=== PATIENT | male | born 1950 | race Caucasian/White ===

== ENCOUNTER 2017-08-23 12:37 | Inpatient (IN) ==
--- NOTE | 2017-08-23 11:38 | Anesthesia Evaluation PreOp ---
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3 L Hct 37.0 L Plt Count 287 Sodium 138 Potassium 5.2 H BUN 40 H Creatinine 1.35 H - Imaging EKG: report reviewed (08/22/2017 SINUS RHYTHM) Anesthesia Exam O2 Sat Height 1.7 m Height 1.7 m Weight 91.626 kg Weight 91.626 kg O2 Sat by Pulse Oximetry 95 Vital Signs Temp Pulse Resp BP Pulse Ox 97.9 F 85 18 121/80 95 08/23/17 13:05 08/23/17 13:05 08/23/17 13:05 08/23/17 13:05 08/23/17 13:05 Blood Glucose* 94 Height: 5'7'' Weight: 202 lbs NPO (# of Hours): 8 Pain Scale: 0 Pain Scale Used: Numeric (1 - 10) - HEENT Pupil (Motor): EOMI Mallampati: II Teeth: Normal Oral Opening: Greater than 3 - 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
--- NOTE | 2017-08-23 13:03 | History & Physical Report ---
Date of Encounter: 08/23/17 Time of Encounter: 13:03 24 Hour HP Update - Instructions Instructions: If the History and Physical is less than 30 days old and was completed prior to A.M. admission and or procedure and has NOT been updated on calendar day of procedure please complete this update prior to performing procedure. - Update Patient reports changes in Medical Condition: No Changes in examination, assessment, or condition: No Changes in Medication: No Preop tests/diagnostics Reviewed: Yes Surgery Remains Indicated: Yes Consent for Planned Operative Procedure(s) Verified: Yes - Pre-Operative Checklist Preoperative Checklist Indicated: No Prophylactic Antibiotic Ordered: Yes Is VTE Prophylaxis Indicated?: Yes
--- NOTE | 2017-08-23 13:05 | Discharge Summary ---
Orders not resulted at time of discharge: Pending orders 08/23/17 09:09 Hemoglobin and Hematocrit [HEME] Routine Date of Encounter: 08/24/17 Time of Encounter: 06:48 - Discharge Diagnosis (1) Left rotator cuff tear arthropathy Priority: Primary Status: Chronic (2) Status post reverse total replacement of left shoulder Priority: Primary Status: Acute (3) Obesity (BMI 30.0-34.9) Priority: Secondary Status: Chronic (4) Hypertension Priority: Secondary Status: Chronic Qualifiers: Hypertension type: unspecified Qualified Code(s): I10 - Essential (primary ) hypertension (5) Hyperlipidemia Priority: Secondary Status: Chronic Qualifiers: Hyperlipidemia type: unspecified Qualified Code(s): E78.5 - Hyperlipidemia , unspecified (6) Type 2 diabetes mellitus Priority: Secondary Status: Chronic Qualifiers: Diabetes mellitus joint terminal attack controller insulin use: unspecified fdc insulin use status Diabetes mellitus complication status: with unspecified complications Qualified Code(s): E11.8 - Type 2 diabetes mellitus with unspecified complications (7) Tobacco consumption Priority: Secondary Status: Chronic - Hospital Course Hospital course: Mr. Brower is a 66 year old male Status post left total shoulder replacement discharged home same day - Time Spent with Patient Total time spent providing and/or coordinating discharge services: - Discharge Medications Home Medications: Albuterol Sulfate [Ventolin Hfa] 2 puff IH Q4H PRN 08/23/17 [History] Allopurinol [Zyloprim 300 MG] 300 mg PO DAILY 08/23/17 [History] Aspirin [Lo-Dose Aspirin EC] 81 mg PO DAILY 08/23/17 [History] Cinnamon Bark [Cinnamon] 500 mg PO DAILY 08/23/17 [History] Diclofenac Sodium [Voltaren] 75 mg PO BID 08/23/17 [History] Famotidine [Pepcid] 10 mg PO BID 08/23/17 [History] Lisinopril [Zestril] 40 mg PO DAILY 08/23/17 [History] Metformin HCl [Glucophage] 1,000 mg PO BID 08/23/17 [History] Niacin [Plain Niacin] 500 mg PO BID 08/23/17 [History] [employer]-3/Dha/Epa/Fish Oil [Fish Oil 1,000 mg Softgel] 1,000 mg PO DAILY 08/23/17 [History] Simvastatin [Zocor] 80 mg PO DAILY 08/23/17 [History] Allergies/Adverse Reactions: 3 Allergy/AdvReac Type Severity Reaction Status Date / Time No Known Allergies Allergy Verified 03/30/17 10:46 Primary care physician: Mar Clark, - Patient Status Disposition: Home, Self-Care - Discharge Instructions Follow Up With: Brooklyn Joshi PAC [Physician Rn Anesthesiology] - 08/30/17 11:15 Mar Bartholomew MD [Primary Care Provider] - Additional Instructions: Discharge Instructions: Total Shoulder Please call [facility] ([phone]), your Primary Care Physician, or report to the Emergency Room if you have any of the following symptoms: Nausea, vomiting, fever greater that 101.5, swelling, chest pain, shortness of breath, increased pain/redness/drainage/odor for your incision site, numbness/ tingling, or any other concerning symptoms. ACTIVITY: Always keep your arm in the sling. Do not raise your arm away from your body. Do not use your arm to help with getting in or out of bed. No weight bearing permitted. Only perform those exercises given to you by your therapist. MEDICATIONS: Upon discharge resume your home medications. Take all the medications as prescribed. Take a stool softener if taking narcotic pain medications. Stool softeners are only effective if you drink enough fluids. Drink 6-8 glass of water or fluids a day, unless this is not allowed for another health problem. Despite using stool softeners, if you haven't had a bowel movement in 3 days, please switch to a gentle laxative. Gentle laxatives are sold over the counter. You should have a bowel movement within 24 hours, if not call the office. You will be discharged from the hospital with a prescription for pain medication. You are encouraged to decrease the use of narcotic pain medication as tolerated. Should you require a refill, please call the office. [facility] prescribes narcotic pain medication for only 4-6 weeks after surgery. If you require pain medication beyond this time period, you may be referred to your Primary Care Physician or to the Pain Clinic for further evaluation. Plan ahead for refills on pain medication as many narcotics either need to be picked up at the office or mailed. It is best to call 48-72 hours in advance of needing a prescription refill so you don't run out of medication. To help control the post-operative pain, you may take NSAIDs (Aleve,Advil, Motrin, Ibuprofen, Naprosyn) or Tylenol as prescribed on the bottle in addition to the pain medication. WOUND CARE: Leave the dressing on for 7-10 days. You may change the dressing if it becomes saturated greater than 50%. Do not get the dressing wet at anytime. Wash your hands with antibacterial soap, rinse and dry prior to any wound care. If you have teagan the visiting nurse or rehab facility can remove the stapes 10-14 days after surgery and place steri-strips across the wound. Leave the steri-strips in place until they fall off on their own. You may let water from the shower run on top of the steri-strips. If you do not have a visiting nurse or rehab facility, you will need to return to the office at 10-14 days for the teagan to be removed. If you have itching or redness around the dressing call the office. FOLLOW-UP: Please follow up with your surgeon in the orthopedic clinic, as scheduled
[2017-08-23] MEDS ORDERED: Albuterol 2.5 MG/3 ML NEBULIZER IH ONE (13:14)
[2017-08-23] MEDS ORDERED: CeFAZolin Syr 2,000MG/20 ML 2,000 MG/20 ML SYRINGE IVPB ONE (13:14)
[2017-08-23] MEDS ORDERED: Lidocaine -MPF 1% 2 ML VIAL ID ONE (13:14)
[2017-08-23] MEDS ORDERED: Ringers Solution, Lactated 1,000 ML IVC SCH ×2 (13:15→16:11)
[2017-08-23] MEDS ORDERED: *HR* Midazolam HCl 2 MG/2 ML VIAL ONE (13:37)
[2017-08-23] MEDS ORDERED: *HR* FentaNYL (PF) 100 MCG/2 ML VIAL ONE ×2 (13:37→14:48)
[2017-08-23] MEDS ORDERED: *HR* Propofol 200 MG/20 ML VIAL IVP ONE ×2 (13:37→15:09)
[2017-08-23] MEDS ORDERED: Bupivacaine/Clonidine Syringe 1 EACH SYRINGE ONE (13:39)
[2017-08-23] MEDS ORDERED: Lidocaine -MPF 2% 2 ML VIAL ONE (13:39)
[2017-08-23] MEDS ORDERED: ROPIVACAINE HCL/PF 0.5% 30 ML VIAL ONE (13:39)
[2017-08-23] MEDS ORDERED: Dexamethasone 4 MG/ML VIAL ONE (13:52)
[2017-08-23] MEDS ORDERED: Ondansetron 4 MG/2 ML VIAL ONE (13:52)
[2017-08-23] MEDS ORDERED: Lidocaine -MPF 4% 5 ML AMPUL ONE (14:01)
--- NOTE | 2017-08-23 14:02 | Anesthesia Procedures ---
Date of Encounter: 08/23/17 Time of Encounter: 14:00 Procedures: Anesthesia - Nerve Block Procedure Date: 08/23/17 Time: 14:00 Surgical Procedure: left tsr Checklist: Correct Patient Identifier, Correct procedure, History checked Correct side: Left Blood Thinner: No Monitor Applied: EKG, BP, Pulse Oximetry Supplemental Oxygen via Nasal Cannula (L/min): 2 Sedation: Versed (mg): 2 Sedation: Fentanyl (mcg): 100 Indication: Post Op Analgesia (request per surgeon) Pre-op Neuro Deficits: No Block Type: Supraclavicular Catheter placed: No Sterile Technique: Yes Ultrasound used: Yes Anatomy identified: Yes Visual spread of Local: Yes Neuro Stimulation: No Blood on Needle Aspiration: No Smooth Injection of Local: Yes Pain with Injection of Local: No Prep: Chlorhexadine Needle: 22 x 50 mm Stimuplex Local: 0.25% Bupivicaine w/Clonidine 20 mcg/cc (for icb 10ml), Ropivacaine (0.5 % 30ml) Volume (cc): 30 Number of Attempts: 1 Complications: None/effective block Vitals: Vital Signs/O2 Sat/Glucose, Most Current Temp Pulse Resp BP Pulse Ox 08/23/17 13:59 90 15 116/77 93 08/23/17 13:48 90 16 124/85 96 08/23/17 13:22 97.9 F 85 18 121/80 95 08/23/17 13:05 97.9 F 85 18 121/80 95 Comments: pt tolerated procedure well. no complications. vss.
[2017-08-23] MEDS ORDERED: *HR* Succinylcholine 200 MG/10 ML VIAL IVP ONE (14:28)
[2017-08-23] MEDS ORDERED: *HR* PHENYLEPHRINE 1,000 MCG/10 ML SYRINGE IVP ONE (14:54)
[2017-08-23] MEDS ORDERED: EPHEDrine 50 MG/ML VIAL ONE (15:02)
--- NOTE | 2017-08-23 15:18 | Orthopedic Operative Note ---
Date of procedure: 08/23/17 Pre-op diagnosis: Left shoulder cuff tear arthropathy Post-op diagnosis: same Procedure: Procedure: Total Shoulder Replacment Reverse, left Estimated blood loss: 100 cc Hardware: Metal and polyethylene replacement: Arthrex large glenoid baseplate, 2 4.5 screws. 1 6.5 screw, 42+4 glenosphere, 10 humeral stem, poly insert 6 Exam Under anesthesia: Full motion no instability Procedural Notes: Irreparable rotator cuff tear Operative procedure: The patient was brought to the operating room and placed on the operating room table. After general anesthesia was administered the operative shoulder was examined. Findings were noted. The patient was placed in the modified beachchair position. All pressure points were padded appropriately. And the head was stabilized in the neutral position. The operative extremity was prepped and draped in the sterile surgical fashion. The patient received IV antibiotics prior to skin incision. A standard deltopectoral approach was made to the operative shoulder. Incision was made to the skin and subcutaneous tissue,hemo stasis was obtained with Bovie cautery. Using careful blunt dissection the cephalic vein was identified and mobilized medially. The deltopectoral interval was developed and the clavipectoral fascia was incised. The subscap was released off the lesser tuberosity and tagged with #2 FiberWire suture subscap was irreparable. The humerus was dislocated patient noted to have irreparable tear supraspinatus tendon, and the humeral cut was made along the anatomic neck. Anterior and posterior Bankart retractors were placed to expose the glenoid. The glenoid guide was seated and the centering hole was made. It was reamed with the appropriate reamer. The large baseplate was seated and secured with (2) 4.5 screws and one 6.5 screw. The baseplate was irrigated and dried and the 42+4 Glenosphere was seated and secured with the Wilkerson taper. The Wilkerson taper was tested and found to be secure the humerus was redislocated and prepared with the diaphyseal reamers, followed by a broaching process up to the appropriate size 10 in the patient's anatomic version. The metaphyseal reamer was then utilized. Trial reduction found the shoulder to be relocatable. Trial components were removed and the 10 stem was impacted in place in the patient's anatomic version. Trial reduction found the shoulder to be relocatable and stable with the appropriate 6. Trial component was removed and the real implant was seated and secured the shoulder was reduced. The shoulder had excellent motion and excellent stability and no evidence of dislocation. The deep tissue was irrigated with pulse irrigation. The deltopectoral interval was closed with a running #1 PDS suture, subcutaneous tissue was irrigated and closed with 0 PDS suture, the skin was closed with Dermabond. The patient was placed in a sterile dressing, abduction brace and extubated. The patient was then transferred to the recovery room in stable condition. Anesthesia: GETA Surgeon: Nic Leon Was there an pediatric assistant present: No Estimated blood loss (cc): 100 Condition: stable Disposition: PACU
--- NOTE | 2017-08-23 15:50 | Anesthesia Evaluation Post Op ---
Date of Encounter: 08/23/17 Time of Encounter: 15:49 - Vital Signs Vital Signs: Vital Signs/O2 Sat, Most Current Temp Pulse Resp BP Pulse Ox 98.4 F 93 16 117/81 95 08/23/17 15:24 08/23/17 15:44 08/23/17 15:44 08/23/17 15:44 08/23/17 15:44 - Lungs Lungs: Clear Ascult./Percussion - Airway Airway: Non-obstructed - Cardiovascular Regular Rate - Mental Status Mental Status: Alert & Oriented, Answers Appropriately - Pain Pain Scale: 0 Pain Scale used: Numeric (1 - 10) - Nausea Vomiting Nausea Vomiting: Not Present - Hydration Hydration: Ice chips, Has not voided - Discharge PostOp Status: Transfer Patient to floor
[2017-08-23] MEDS ORDERED: Naloxone 0.4 MG/ML INJ IVP PRN (16:11)
[2017-08-23] MEDS ORDERED: *HR* Dextrose 50 % in Water (Syg) 50 ML SYRINGE IVP PRN (16:11)
[2017-08-23] MEDS ORDERED: *HR* OxyCODONE/APAP 5/325 TABLET PO PRN (16:11)
[2017-08-23] MEDS ORDERED: D5% in Water 1,000 ML IVC PRN (16:11)
[2017-08-23] MEDS ORDERED: Dextrose Gel 15 GM/37.5 ML TUBE PO PRN ×2 (16:11)
[2017-08-23] MEDS ORDERED: Ondansetron 4 MG/2 ML VIAL IVP PRN (16:11)
[2017-08-23] MEDS ORDERED: *HR* OxyCODONE Immed Rel 5 MG TABLET PO PRN (16:11)
[2017-08-23] MEDS ORDERED: traMADol 50 MG TABLET PO PRN (16:11)
[2017-08-23 16:14] LABS: Hematocrit 34.9 % (37.5-50.1); Hemoglobin 11.4 g/dL (12.9-16.9)
[2017-08-23] MEDS ORDERED: Insulin LISPRO 300 UNITS/3 ML VIAL SQ SCH ×2 (16:30→21:00)
[2017-08-23 17:01] VITALS: BP 117/78
[2017-08-23] MEDS ORDERED: *HR* Enoxaparin 30 MG/0.3 ML SYRINGE SQ SCH ×2 (18:00)
[2017-08-23] MEDS ORDERED: MOM Conc 10 ML UD.LIQ PO PRN (21:00)
[2017-08-23] MEDS ORDERED: Temazepam 15 MG CAPSULE PO PRN (21:00)
[2017-08-23] MEDS ORDERED: Famotidine 20 MG TABLET PO SCH (21:00)
[2017-08-23] MEDS ORDERED: Sennosides 8.6 MG TABLET PO PRN (21:00)
[2017-08-23] MEDS ORDERED: *HR* Metformin 500 MG TABLET PO SCH (21:00)
[2017-08-23] MEDS ORDERED: CeFAZolin Pre 2,000 MG/100 ML 2,000 MG/100 ML BAG IVPB SCH (22:00)
[2017-08-24] MEDS ORDERED: Aspirin Enteric Coated 81 MG Tablet PO SCH (09:00)
[2017-08-24] MEDS ORDERED: (Cinnamon Bark [Cinnamon] 500 MG) PO SCH (09:00)
[2017-08-24] MEDS ORDERED: (Omega-3/Dha/Epa/Fish Oil [Fish Oil 1,000 Mg Softgel] PO SCH (09:00)
[2017-08-24] MEDS ORDERED: Lisinopril 20 MG TABLET PO SCH (09:00)
== END 2017-08-23 18:53 | disposition home or self-care (01) | DRG 483 ==
LOC: SAMDAY 12:37 → 3NENU 16:33
PROVIDERS: ADMIT Orthopaedic Surgery; ATTEND Orthopaedic Surgery